=== PATIENT | female | born 1980 | race Caucasian/White ===

== ENCOUNTER 2017-11-14 14:05 | Emergency (ER) | payer BC ==
[2017-11-14] MEDS ORDERED: Ketorolac 15 MG/ML SDV IVPUSH ONE (14:36)
[2017-11-14] MEDS ORDERED: LORazepam 2 MG/ML SDV IVPUSH ONE (14:36)
[2017-11-14] MEDS ORDERED: Sodium Chloride 0.9% 1,000 ML IV ONE ×2 (14:36→15:53)
[2017-11-14] MEDS ORDERED: Sodium Chloride 0.9% 10 ML Syringe FLUSH PRN (14:36)
[2017-11-14] MEDS ORDERED: Ondansetron 4 MG/2 ML SDV IVPUSH ONE (14:36)
[2017-11-14] MEDS ORDERED: HYDROmorphone 0.5 MG/0.5 ML SYRINGE IVPUSH ONE ×2 (14:36→15:28)
--- NOTE | 2017-11-14 14:52 | EDM.PDOC ---
ED HPI GENERAL MEDICAL PROBLEM - General Chief Complaint: Flank Pain Stated Complaint: RIGHT SIDE PAIN Time Seen by Provider: 11/14/17 14:40 Source of Information: Reports: Patient History Limitations: Reports: No Limitations - History of Present Illness INITIAL COMMENTS - FREE TEXT/NARRATIVE: 37-year-old female resents for evaluation and treatment of right mid back and right flank pain. Reports that the pain started yesterday. She reports associated symptoms of nausea and vomiting. States this feels similar to kidney stones. She has had multiple kidney stones in the past. Has required intervention on one occasion to remove the stone. She denies any abdominal pain or any dysuria. Reports trouble initiating urine. She has had some blood in her urine. Patient resides in [place] and is in [place] working. She has a past medical history of endometrial cancer. She also has a past medical history PCOS and endometrial hyperplasia. Patient reports she has a history of a fatty liver and has chronic elevated liver enzymes. - Related Data Allergies Allergy/AdvReac Type Severity Reaction Status Date / Time cephalexin Allergy Cannot Verified 11/14/17 14:18 Remember Home Meds: Home Meds FLUoxetine [PROzac] 40 mg PO DAILY 11/14/17 [History] HYDROmorphone [Dilaudid] 4 mg PO TID PRN 11/14/17 [History] Ketorolac [Toradol] 10 mg PO TID PRN #15 tab 11/14/17 [Rx] Ondansetron [Zofran ODT] 4 mg PO Q6H PRN #15 tab.dis 11/14/17 [Rx] Pantoprazole [ProTONIX] 20 mg PO DAILY 11/14/17 [History] Sulfamethoxazole/Trimethoprim [Bactrim Ds Tablet] 1 each PO BID #20 tablet 11/14 [Rx] Tamsulosin HCl [Flomax] 0.4 mg PO DAILY #7 capsule 11/14/17 [Rx] atorvaSTATin [Lipitor] 10 mg PO BEDTIME 11/14/17 [History] busPIRone [Buspar] 5 mg PO DAILY 11/14/17 [History] ED ROS GENERAL - Review of Systems Review Of Systems: See Below Constitutional: Denies: Fever, Chills GI/Abdominal: Reports: Nausea, Vomiting. Denies: Abdominal Pain : Reports: Flank Pain (right). Denies: Dysuria Musculoskeletal: Reports: Back Pain (right mid back) ED EXAM, RENAL/ - Physical Exam Exam: See Below Exam Limited By: No Limitations General Appearance: Alert, WD/WN, Moderate Distress, Obese Throat/Mouth: Normal Inspection, Normal Voice, No Airway Compromise Respiratory/Chest: No Respiratory Distress, Lungs Clear, Normal Breath Sounds Cardiovascular: Normal Peripheral Pulses, Regular Rate, Rhythm, No Murmur GI/Abdominal: Normal Bowel Sounds, Soft, Non-Tender, Other (negative murphys sign) Neurological: Alert, Oriented, Normal Cognition Psychiatric: Normal Affect, Normal Mood Skin Exam: Warm, Dry, Normal Color Course - Vital Signs Last Recorded V/S: Last Vital Signs Temp 99 F 11/14/17 14:18 Pulse 100 11/14/17 14:18 Resp 20 11/14/17 14:18 BP 137/86 11/14/17 14:18 Pulse Ox 97 11/14/17 14:18 - Orders/Labs/Meds Orders: Active Orders 24 hr Category Date Time Status Peripheral IV Care [RC] . DIRECTED Care 11/14/17 14:37 Active CULTURE URINE [RM] Stat Lab 11/14/17 16:00 Received UA W/MICROSCOPIC [URIN] Stat Lab 11/14/17 16:00 Ordered Sodium Chloride 0.9% [Saline Flush] Med 11/14/17 14:36 Active 10 ml FLUSH ASDIRECTED PRN Peripheral IV Insertion Adult [OM.PC] Routine Oth 11/14/17 14:36 Ordered Medication Orders Sodium Chloride (Saline Flush) 10 ml FLUSH ASDIRECTED PRN PRN Reason: Keep Vein Open Last Admin: 11/14/17 14:51 Dose: 10 ml Labs: Laboratory Tests 11/14/17 11/14/17 11/14/17 Range/Units 14:30 14:30 16:00 WBC 12.49 H (3.98-10.04) K/mm3 RBC 5.43 H (3.98-5.22) M/mm3 Hgb 15.2 (11.2-15.7) gm/L Hct 44.9 (34.1-44.9) % MCV 82.7 (79.4-94.8) fl MCH 28.0 (25.6-32.2) pg MCHC 33.9 (32.2-35.5) g/dl RDW Std Deviation 43.0 (36.4-46.3) fL Plt Count 326 (182-369) K/mm3 MPV 9.8 (9.4-12.3) fl Neutrophils % (Manual) 69 H (40-60) % Band Neutrophils % 0 (0-10) % Lymphocytes % (Manual) 22 (20-40) % Atypical Lymphs % 0 % Monocytes % (Manual) 6 (2-10) % Eosinophils % (Manual) 3 (0.7-5.8) % Basophils % (Manual) 0 L (0.1-1.2) Platelet Estimate Adequate Plt Morphology Comment Normal RBC Morph Comment Normal Sodium 143 (136-145) mEq/L Potassium 3.2 L (3.5-5.1) mEq/L Chloride 105 (98-107) mEq/L Carbon Dioxide 22 (21-32) mEq/L Anion Gap 19.2 H (5-15) BUN 10 (7-18) mg/dL Creatinine 0.9 (0.55-1.02) mg/dL Est Cr Clr Drug Dosing 75.34 mL/min Estimated GFR (MDRD) > 60 (>60) mL/min BUN/Creatinine Ratio 11.1 L (14-18) Glucose 133 H (74-106) mg/dL Calcium 9.8 (8.5-10.1) mg/dL Total Bilirubin 1.1 H (0.2-1.0) mg/dL AST 110 H (15-37) U/L ALT 152 H (14-59) U/L Alkaline Phosphatase 127 H (46-116) U/L C-Reactive Protein 1.3 H* (<1.0) mg/dL Total Protein 8.7 H (6.4-8.2) g/dl Albumin 4.2 (3.4-5.0) g/dl Globulin 4.5 gm/dL Albumin/Globulin Ratio 0.9 L (1-2) Urine Color Dark yellow (Yellow) Urine Appearance Slt cloudy H (Clear) Urine pH 7.0 (5.0-8.0) Ur Specific [place] 1.020 (1.005-1.030) Urine Protein 2+ H (Negative) Urine Glucose (UA) Negative (Negative) Urine Ketones Negative (Negative) Urine Occult Blood 2+ H (Negative) Urine Nitrite Negative (Negative) Urine Bilirubin Negative (Negative) Urine Urobilinogen 0.2 (0.2-1.0) Ur Leukocyte Esterase Trace H (Negative) Urine RBC 20-30 H (0-5) /hpf Urine WBC 5-10 H (0-5) /hpf Ur Epithelial Cells 10-20 H (0-5) /hpf Urine Bacteria Many H (FEW) /hpf Urine Mucus Moderate H (FEW) /hpf Meds: Medications Generic Name Dose Route Start Last Admin Trade Name Freq PRN Reason Stop Dose Admin Sodium Chloride 10 ml 11/14/17 14:36 11/14/17 14:51 Saline Flush FLUSH 10 ml ASDIRECTED PRN Administration Keep Vein Open Discontinued Medications Generic Name Dose Route Start Last Admin Trade Name Freq PRN Reason Stop Dose Admin Hydromorphone HCl 0.5 mg 11/14/17 14:36 11/14/17 14:51 Dilaudid IVPUSH 11/14/17 14:37 0.5 mg ONETIME ONE Administration Hydromorphone HCl 0.5 mg 11/14/17 15:28 11/14/17 15:39 Dilaudid IVPUSH 11/14/17 15:29 0.5 mg ONETIME ONE Administration Sodium Chloride 1,000 mls @ 999 mls/hr 11/14/17 14:36 11/14/17 14:49 Normal Saline IV 11/14/17 15:36 999 mls/hr ONETIME ONE Administration Sodium Chloride 1,000 mls @ 999 mls/hr 11/14/17 15:53 11/14/17 16:16 Normal Saline IV 11/14/17 16:53 999 mls/hr ONETIME ONE Administration Ketorolac Tromethamine 15 mg 11/14/17 14:36 11/14/17 14:50 Toradol IVPUSH 11/14/17 14:37 15 mg ONETIME ONE Administration Lorazepam 0.5 mg 11/14/17 14:36 11/14/17 14:50 Ativan IVPUSH 11/14/17 14:37 0.5 mg ONETIME ONE Administration Ondansetron HCl 4 mg 11/14/17 14:36 11/14/17 14:50 Zofran IVPUSH 11/14/17 14:37 4 mg ONETIME ONE Administration - Radiology Interpretation Free Text/Narrative:: CT the abdomen and pelvis without IV contrast impression per Dr. Love 5 mm obstructing stone within the proximal right ureter slightly past the UPJ. This finding causes proximal hydronephrosis. 2 small nonobstructing calculi within the right kidney. fatty infiltration within the liver and other incidental findings. - Re-Assessments/Exams Free Text/Narrative Re-Assessment/Exam: 11/14/17 16:54 Reviewed the labs and imaging with the patient. It is possible she may pass the stone on her own; it is also possible she may require intervention. Over the weekend I will have her attempt to pass the stone on her own by drinking plenty of fluids and using Flomax. If she does not pass it by Friday recommend follow- up with urology. Urine has trace leukocytes and no nitrites, however moderate bacteria seen on microscopy. Will send urine for culture. Will treat with Bactrim to concern of possible UTI with the stone. She is to return to the ER for symptoms change or worsen. Discharge instructions as documented. Departure - Departure Time of Disposition: 16:55 Disposition: Home, Self-Care 01 Condition: Fair Clinical Impression: Nephrolithiasis - Discharge Information *PRESCRIPTION DRUG MONITORING PROGRAM REVIEWED*: No *COPY OF PRESCRIPTION DRUG MONITORING REPORT IN PATIENT KATHI: No Prescriptions: Ketorolac [Toradol] 10 mg PO TID PRN #15 tab PRN Reason: Pain Ondansetron [Zofran ODT] 4 mg PO Q6H PRN #15 tab.dis PRN Reason: Nausea Sulfamethoxazole/Trimethoprim [Bactrim Ds Tablet] 1 each PO BID #20 tablet Tamsulosin HCl [Flomax] 0.4 mg PO DAILY #7 capsule Instructions: Kidney Stones, [id number] Referrals: PCP,None [Primary Care Provider] - Forms: ED Department Discharge Additional Instructions: You were given medication the ER that can affect your ability to drive and operate machinery. Do not drive or operate machinery within 10 hours of taking prescription narcotic pain medication. Make sure you're drinking plenty of fluids. Take the Flomax 1 Daily until stone passes. Take your Dilaudid tabs you have at home as needed for pain. may also take the Toradol 1 tab 3 times a day as needed for pain. Zofran 1 tab every 6-8 hours as needed for nausea. If the stone does not pass by [place] recommend follow-up with Recommend Dr. Gloria at [facility] in [place]. Call [phone] to schedule with him. Bactrim 1 tab daily. Take this with food. Your urine was sent for culture. We will notify you of any change of antibiotics is needed or if there is anything concerning on your urine. Please return to the ER if your symptoms change or worsen. - My Orders Last 24 Hours: My Active Orders 11/14/17 14:36 Sodium Chloride 0.9% [Saline Flush] 10 ml FLUSH ASDIRECTED PRN Peripheral IV Insertion Adult [OM.PC] Routine 11/14/17 14:37 Peripheral IV Care [RC] . DIRECTED 11/14/17 16:00 CULTURE URINE [RM] Stat UA W/MICROSCOPIC [URIN] Stat - Assessment/Plan Last 24 Hours: My Active Orders 11/14/17 14:36 Sodium Chloride 0.9% [Saline Flush] 10 ml FLUSH ASDIRECTED PRN Peripheral IV Insertion Adult [OM.PC] Routine 11/14/17 14:37 Peripheral IV Care [RC] . DIRECTED 11/14/17 16:00 CULTURE URINE [RM] Stat UA W/MICROSCOPIC [URIN] Stat
--- NOTE | 2017-11-14 15:36 | CT ---
CT abdomen and pelvis Technique: Multiple axial sections were obtained from above the dome of the diaphragm inferiorly through the pubic symphysis. Intravenous and oral contrast was not utilized. Study has been performed as a ureteral stone protocol. Comparison: No prior imaging of the kidneys. Findings: 2 small nonobstructing calculi are seen within the right kidney. Left kidney shows no abnormal calcifications. Slightly prominent collecting system of the right kidney is seen. This is caused by an obstructing stone located slightly past the UPJ within the proximal right ureter measuring about 5 mm. No other abnormal calcifications are seen along the course of the ureters. Visualized lung bases shows nothing acute. Liver shows fatty infiltration without focal abnormality. Spleen appears within normal limits. Adrenal glands show no nodule. Pancreas is within normal limits. Gallbladder shows no calcified gallstones. Aorta shows no aneurysmal dilatation. No retroperitoneal adenopathy or mesenteric abnormalities are seen. No pelvic mass or adenopathy is seen. Appendix is not visualized Bone window settings were reviewed which shows previous lumbar spine surgery at L3-4 and L4-5. Impression: 1. 5 mm obstructing stone within the proximal right ureter occurring slightly past the UPJ. This finding causes proximal hydronephrosis. 2. 2 small nonobstructing calculi within the right kidney. 3. Fatty infiltration within the liver and other incidental findings. Diagnostic code #3
== END 2017-11-14 17:20 | disposition home or self-care (01) ==
LOC: JD.ED 14:05
DX: N13.2 Hydronephrosis with renal and ureteral calculous obstruction (principal); Z88.1 Allergy status to other antibiotic agents; Z79.899 Other long term (current) drug therapy
CPT/HCPCS: 36415; 74176; 80053; 81001; 85007; 85027; 86140; 87086; 87088; 87186; 96361; 96374; 96375; 96376; 99284; J1170; J1885; J2060; J2405; J7040; J7050